=== PATIENT | male | born 1980 | race Caucasian/White ===

== ENCOUNTER 2017-06-30 00:24 | Emergency (ER) | payer SELFPAY ==
[2017-06-30] MEDS ORDERED: Bacitracin Zinc 1 Packet ONE (00:59)
[2017-06-30] MEDS ORDERED: Cephalexin 500 MG CAP ONE (01:03)
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
== END 2017-06-30 01:05 | disposition home or self-care (01) ==
LOC: BURERS 00:24
DX: S81.831A Puncture wound without foreign body, right lower leg, initial encounter (principal); F17.210 Nicotine dependence, cigarettes, uncomplicated; W34.010A Accidental discharge of airgun, initial encounter

== ENCOUNTER 2020-01-05 15:52 | Emergency (ER) | payer SELFPAY | END 2020-01-05 16:17 | disposition home or self-care (01) | LOC: BURERS 15:52 | DX: L03.114 Cellulitis of left upper limb (principal); T22.012A Burn of unspecified degree of left forearm, initial encounter; T20.06XA Burn of unspecified degree of forehead and cheek, initial encounter; T23.071A Burn of unspecified degree of right wrist, initial encounter; T31.0 Burns involving less than 10% of body surface; X16.XXXA Contact with hot heating appliances, radiators and pipes, initial encounter | CPT/HCPCS: 99283 ==

== ENCOUNTER 2025-03-23 20:42 | Emergency (ER) | payer OTHER | END 2025-03-23 21:50 | disposition home or self-care (01) | LOC: BURERS 20:42 | DX: S61.211A Laceration without foreign body of left index finger without damage to nail, initial encounter (principal); I10 Essential (primary) hypertension; F17.210 Nicotine dependence, cigarettes, uncomplicated; W26.0XXA Contact with knife, initial encounter | CPT/HCPCS: 99282 ==

== ENCOUNTER 2025-05-14 20:08 | Emergency (ER) | payer OTHER, SELFPAY ==
[~2025-05-14 20:08] MED LIST: Iopamidol 370 76% 100 ML VIAL ONE
[2025-05-14] MEDS ORDERED: Ketorolac Tromethamine 30 MG (1 mL) VIAL ONE (20:31)
[2025-05-14 20:37] LABS: #Basophils 0.2 thou/uL (0.0-0.2); #Eosinophils 0.1 thou/uL (0.0-0.7); #Lymphocytes 2.0 thou/uL (1.20-3.40); #Monocytes 0.8 thou/uL (0.11-0.59); #Neutrophils 7.3 thou/uL (1.40-6.50); %Basophils 1.9 % (0.0-1.0); %Eosinophils 1.1 % (0.0-10.0); %Lymphocytes 19.0 % (21.0-51.0); %Monocytes 7.9 % (0.0-10.0); %Neutrophils 70.1 % (42.0-75.0); Hematocrit 47.2 % (42.0-52.0); Hemoglobin 16.6 g/dL (14.0-18.0); Mean Corpuscular Hemoglobin 34.6 pg (27.0-31.0); Mean Corpuscular Volume 98.2 fl (78.0-98.0); Platelet Count 180 10x3/uL (130-400); Red Blood Cell (RBC) Count 4.81 mill/uL (4.70-6.10); White Blood Cell (WBC) Count 10.3 10x3/uL (4.8-10.8)
[2025-05-14 20:51] LABS: ALT (SGPT) 108 U/L (Less than 45); AST (SGOT) 154 U/L (11-34); Albumin 4.6 g/dL (3.1-4.5); Alkaline Phosphatase 76 U/L (40-110); Anion Gap 24 mmol/L (10-20); BUN (Urea Nitrogen) 21 mg/dL (8.9-20.6); Bilirubin, Total 3.3 mg/dL (0.3-1.2); Calc. Creatinine Clearance 0 mL/min (70-130); Calcium 9.6 mg/dL (7.8-10.44); Carbon Dioxide 19 mmol/L (22-29); Chloride 98 mmol/L (98-107); Globulin 3.5 g/dL (2.4-3.5); Glucose 105 mg/dL (70-105); Lipase 22 U/L (8-78); Magnesium 1.5 mg/dL (1.6-2.6); Potassium 3.6 mmol/L (3.5-5.1); Sodium 137 mmol/L (136-145)
[2025-05-14] MEDS ORDERED: Magnesium Oxide 400 MG TAB ONE (21:13)
[2025-05-14 21:46] LABS: Glucose, Urine (Dipstick) Negative (Negative); Leukocyte Negative (Negative); Protein, Urine (Dipstick) 100 mg/dL (Neg-Trace); Specific Gravity, Urine 1.010 (1.005-1.030)
[2025-05-14 21:54] LABS: Cocaine Metabolite Screen Negative (Negative); THC/Cannabinoid Screen PRELIM POSITIVE (Negative); Tricyclic Screen Negative (Negative)
[2025-05-14 21:56] LABS: Bacteria/HPF 1+ HPF (None Seen); CAUTI Indications for Culture Pelvic or flank pain; RBC/HPF 0-3 HPF (0-3)
[2025-05-14 21:58] LABS: Urine Culture Reflex No No
== END 2025-05-14 22:24 | disposition left against medical advice (07) ==
LOC: BURERS 20:08
DX: S22.31XA Fracture of one rib, right side, initial encounter for closed fracture (principal); S00.83XA Contusion of other part of head, initial encounter; S90.512A Abrasion, left ankle, initial encounter; S90.511A Abrasion, right ankle, initial encounter; N17.9 Acute kidney failure, unspecified; I10 Essential (primary) hypertension; E03.9 Hypothyroidism, unspecified; F15.20 Other stimulant dependence, uncomplicated; Z53.29 Procedure and treatment not carried out because of patient's decision for other reasons; Y09 Assault by unspecified means
CPT/HCPCS: 71260; 74177; 80053; 80306; 81001; 83690; 83735; 85025; 96374; J1885; Q9967